=== PATIENT | female | born 1995 | race Caucasian/White ===

== ENCOUNTER 2019-04-08 12:43 | Inpatient (IN) | payer MEDICAID, OTHER ==
[~2019-04-08] VITALS: Ht 162.6 cm; Wt 94.0 kg
[~2019-04-08 12:43] MED LIST: BENZ2TAB10 PO; DIVA-78 PO; RISP2 PO
[2019-04-08] MEDS ORDERED: ARIP400S3 IM (14:02)
[2019-04-08] MEDS ORDERED: TOPI25 PO (14:02)
[2019-04-08] MEDS ORDERED: TRAZ-252 PO (14:02)
[2019-04-08] MEDS ORDERED: LISI-660 PO (14:02)
[2019-04-08 14:08] LABS: BASOPHILS % (AUTO) 0.5 % (0.0-2.0); EOSINOPHILS % (AUTO) 1.4 % (1.0-6.0); HEMATOCRIT 43.5 % (36-46); HEMOGLOBIN 14.5 g/dL (12.0-16.0); LYMPHOCYTES # (AUTO) 2.2 K/uL (1.0-4.8); LYMPHOCYTES % (AUTO) 15.1 % (22.0-44.0); MEAN CORPUSCULAR HEMOGLOBIN 28.5 pg (26.0-34.0); MEAN CORPUSCULAR HGB CONC 33.3 G/dL (31.0-37.0); MEAN CORPUSCULAR VOLUME 86 fL (80-100); MONOCYTES # (AUTO) 1.1 K/uL (0.1-1.0); MONOCYTES % (AUTO) 7.6 % (2.0-9.0); NEUTROPHILS # (AUTO) 10.8 K/uL (1.8-7.7); NEUTROPHILS % (AUTO) 75.4 % (40.0-70.0); PLATELET COUNT (AUTO) 410 K/uL (150-450); RED BLOOD CELL COUNT(AUTO) 5.07 MIL/uL (4.00-5.20); RED CELL DISTRIBUTION WIDTH 12.7 % (11.5-14.5)
[2019-04-08 14:20] LABS: ANION GAP 12 mmol/L (8-16); CARBON DIOXIDE 22 mmol/L (22-29); CHLORIDE 104 mmol/L (98-107); CREATININE 0.82 mg/dL (0.60-1.30); GLOMERULAR FILTR. RATE CALC > 60 mL/min (>60); GLUCOSE,RANDOM 93 mg/dL (70-110); SODIUM SERUM 138 mmol/L (136-145); UREA NITROGEN, BLOOD 16 mg/dL (7-18)
[2019-04-08 14:33] LABS: ALANINE AMINOTRANSFERASE 35 U/L (12-78); ALKALINE PHOSPHATASE 74 U/L (46-116); ASPARTATE AMINOTRANSFERASE 19 U/L (15-37); BILIRUBIN,TOTAL 0.4 mg/dL (0.1-1.0); HCG,QUANTITATIVE < 1 mIU/mL (0-6); TOTAL PROTEIN, SERUM 8.3 g/dL (6.4-8.2)
[2019-04-08] MEDS ORDERED: BACITRACIN 0.9 GM PACKET OINTMENT TP ONE (15:00)
[2019-04-08 15:15] LABS: APPEARANCE,URINE CLEAR (CLEAR); GLUCOSE, URINE (UA) NEGATIVE (NEGATIVE); KETONES,URINE TRACE mg/dL (NEGATIVE); LEUKOCYTE ESTERASE ,URINE SMALL (NEGATIVE); NITRATE,URINE NEGATIVE (NEGATIVE); OCCULT BLOOD,URINE NEGATIVE (NEGATIVE); PROTEIN,URINE TRACE (NEGATIVE)
[2019-04-08 15:16] LABS: BILIRUBIN,URINE PRELIM. POSITIVE (NEGATIVE)
[2019-04-08 15:24] LABS: AMPHET/METH SCREEN,URINE POSITIVE (NEGATIVE); BARBITURATE SCREEN, URINE NEGATIVE (NEGATIVE); BENZODIAZEPINES SCREEN,URINE NEGATIVE (NEGATIVE); CANNABINOID SCREEN,URINE POSITIVE (NEGATIVE); COCAINE SCREEN,URINE NEGATIVE (NEGATIVE); METHADONE SCREEN, URINE NEGATIVE (NEGATIVE); OPIATE SCREEN,URINE NEGATIVE (NEGATIVE)
[2019-04-08 15:26] LABS: BACTERIA,URINE Few /HPF (None Seen); PHENCYCLIDINE SCREEN,URINE NEGATIVE (NEGATIVE); RBC,URINE None Seen /HPF (0-2)
[2019-04-08 15:27] LABS: CALCIUM OXALATE CRYSTALS,UR Few /LPF (None Seen); SQUAMOUS EPITHELIAL CELL,UR Few /LPF (None Seen)
[2019-04-08] MEDS ORDERED: HALOPERIDOL LACTATE 5 MG/ML VIAL IM ONE (16:15)
[2019-04-08] MEDS ORDERED: DiphenhydrAMINE HCL 50 MG/ML VIAL IM ONE (16:15)
[2019-04-08] MEDS ORDERED: LORazepam 2 MG/ML VIAL IM ONE (16:15)
[2019-04-08 21:23] VITALS: BP 130/72
[2019-04-09] MEDS ORDERED: GuaiFENesin/D-METHORPHAN [SUGAR-FREE] 200-20MG/10 ML SYRUP UDCUP PO PRN (06:15)
[2019-04-09] MEDS ORDERED: ACETAMINOPHEN 325 MG TABLET PO PRN (06:15)
[2019-04-09] MEDS ORDERED: ALBUTEROL SULFATE HFA 90 MCG/PUFF 8 GM INHALER IH PRN (06:15)
[2019-04-09] MEDS ORDERED: MAG HYDROX/AL HYDROX/SIMETH ES 30 ML SUSPENSION UDCUP PO PRN (06:15)
[2019-04-09] MEDS ORDERED: ONDANSETRON HCL 4 MG TABLET PO PRN (06:15)
[2019-04-09] MEDS ORDERED: LOPERAMIDE HCL 2 MG CAPSULE PO PRN (06:15)
[2019-04-09] MEDS ORDERED: CloNIDine HCL 0.1 MG TABLET PO PRN (06:15)
[2019-04-09] MEDS ORDERED: PETROLATUM,WHITE 28 GM JELLY TP PRN (06:15)
[2019-04-09] MEDS ORDERED: DOCUSATE SODIUM 100 MG CAPSULE PO PRN (06:15)
[2019-04-09] MEDS ORDERED: MAGNESIUM HYDROXIDE SUSPENSION 30 ML UDCUP PO PRN (06:15)
[2019-04-09] MEDS: LISINOPRIL 5 MG TABLET PO SCH (08:11)
[2019-04-09 09:19] VITALS: BP 140/99
[2019-04-09] MEDS: LORazepam 2 MG TABLET PO PRN ×2 (11:34→16:51)
[2019-04-09] MEDS: DIVALPROEX SODIUM 500 MG DR TABLET PO SCH ×2 (12:31→20:40)
[2019-04-09 17:36] VITALS: BP 128/82
[2019-04-10] MEDS: ZOLPIDEM TARTRATE 10 MG TABLET PO PRN (00:13)
[2019-04-10] MEDS: LORazepam 2 MG TABLET PO PRN ×3 (00:13→11:40)
[2019-04-10] MEDS: LISINOPRIL 5 MG TABLET PO SCH (08:45)
[2019-04-10] MEDS: DIVALPROEX SODIUM 500 MG DR TABLET PO SCH ×2 (08:45→20:22)
[2019-04-10 08:57] VITALS: BP 136/94
[2019-04-10] MEDS: HALOPERIDOL 5 MG TABLET PO PRN (09:56)
[2019-04-10 16:56] VITALS: BP 120/83
[2019-04-11] MEDS: HALOPERIDOL 5 MG TABLET PO PRN ×2 (07:38→14:36)
[2019-04-11] MEDS: LORazepam 2 MG TABLET PO PRN ×2 (07:38→14:36)
[2019-04-11] MEDS: DIVALPROEX SODIUM 500 MG DR TABLET PO SCH ×2 (07:38→20:06)
[2019-04-11 08:15] VITALS: BP 130/96
[2019-04-11] MEDS: LISINOPRIL 5 MG TABLET PO SCH (09:05)
[2019-04-11 16:22] VITALS: BP 132/71
[2019-04-11] MEDS: BACITRACIN 28.4 GM OINTMENT TP SCH (17:52)
[2019-04-12 01:15] VITALS: BP 143/86
[2019-04-12] MEDS: LORazepam 2 MG TABLET PO PRN ×2 (01:15→15:37)
[2019-04-12] MEDS: LISINOPRIL 5 MG TABLET PO SCH (09:21)
[2019-04-12] MEDS: DIVALPROEX SODIUM 500 MG DR TABLET PO SCH ×2 (09:24→20:20)
[2019-04-12] MEDS: BACITRACIN 28.4 GM OINTMENT TP SCH ×2 (09:24→19:26)
[2019-04-12 09:48] VITALS: BP 149/91
[2019-04-12] MEDS: HALOPERIDOL 5 MG TABLET PO PRN (15:37)
[2019-04-12 16:00] VITALS: BP 109/76
[2019-04-12] MEDS: ZOLPIDEM TARTRATE 10 MG TABLET PO PRN (21:26)
[2019-04-13] MEDS: LORazepam 2 MG TABLET PO PRN ×2 (00:25→09:25)
[2019-04-13] MEDS: HALOPERIDOL 5 MG TABLET PO PRN ×2 (00:25→09:25)
[2019-04-13 08:00] VITALS: BP 132/80
[2019-04-13] MEDS: DIVALPROEX SODIUM 500 MG DR TABLET PO SCH ×2 (09:25→20:30)
[2019-04-13] MEDS: LISINOPRIL 5 MG TABLET PO SCH (09:25)
[2019-04-13] MEDS: BACITRACIN 28.4 GM OINTMENT TP SCH ×2 (09:38→16:31)
[2019-04-13 18:20] VITALS: BP 125/79
[2019-04-14] MEDS: LORazepam 2 MG TABLET PO PRN ×2 (03:27→14:29)
[2019-04-14 08:00] VITALS: BP 133/83
[2019-04-14] MEDS: LISINOPRIL 5 MG TABLET PO SCH (08:27)
[2019-04-14] MEDS: BACITRACIN 28.4 GM OINTMENT TP SCH ×3 (08:27→16:25)
[2019-04-14] MEDS: DIVALPROEX SODIUM 500 MG DR TABLET PO SCH ×2 (08:27→20:06)
[2019-04-14 16:23] VITALS: BP 124/74
[2019-04-14] MEDS: HALOPERIDOL 5 MG TABLET PO PRN (16:34)
[2019-04-14] MEDS: PETROLATUM,WHITE 28 GM JELLY TP SCH (20:06)
[2019-04-15] MEDS: LORazepam 2 MG TABLET PO PRN ×3 (01:56→18:27)
[2019-04-15] MEDS: ZOLPIDEM TARTRATE 10 MG TABLET PO PRN ×2 (01:56→23:45)
[2019-04-15 01:57] VITALS: BP 118/78
[2019-04-15 08:00] VITALS: BP 156/82
[2019-04-15] MEDS: HALOPERIDOL 5 MG TABLET PO PRN (08:24)
[2019-04-15] MEDS: LISINOPRIL 5 MG TABLET PO SCH (08:25)
[2019-04-15] MEDS: DIVALPROEX SODIUM 500 MG DR TABLET PO SCH ×2 (08:25→20:24)
[2019-04-15] MEDS: BACITRACIN 28.4 GM OINTMENT TP SCH ×3 (12:38→16:14)
[2019-04-15] MEDS: HYDROCORTISONE 1% 30 GM OINTMENT TP SCH (12:40)
[2019-04-15 16:54] VITALS: BP 129/83
[2019-04-15] MEDS: PETROLATUM,WHITE 28 GM JELLY TP SCH (20:23)
[2019-04-16] MEDS: LORazepam 2 MG TABLET PO PRN ×2 (02:11→10:30)
[2019-04-16] MEDS: HALOPERIDOL 5 MG TABLET PO PRN ×2 (02:11→10:30)
[2019-04-16 08:09] VITALS: BP 135/96
[2019-04-16] MEDS: DIVALPROEX SODIUM 500 MG DR TABLET PO SCH ×2 (08:23→20:44)
[2019-04-16] MEDS: BACITRACIN 28.4 GM OINTMENT TP SCH ×3 (08:23→16:39)
[2019-04-16] MEDS: LISINOPRIL 5 MG TABLET PO SCH (08:23)
[2019-04-16] MEDS: HYDROCORTISONE 1% 30 GM OINTMENT TP SCH (09:17)
[2019-04-16] MEDS: SULFAMETHOX/TRIMETH DS 800-160 MG/TABLET PO SCH (16:39)
[2019-04-16 17:53] VITALS: BP 109/86
[2019-04-16] MEDS: PETROLATUM,WHITE 28 GM JELLY TP SCH (20:45)
[2019-04-17] MEDS: LORazepam 2 MG TABLET PO PRN ×3 (03:24→20:56)
[2019-04-17 07:34] LABS: BASOPHILS % (AUTO) 0.7 % (0.0-2.0); EOSINOPHILS % (AUTO) 2.2 % (1.0-6.0); HEMATOCRIT 42.9 % (36-46); HEMOGLOBIN 14.4 g/dL (12.0-16.0); LYMPHOCYTES # (AUTO) 2.6 K/uL (1.0-4.8); LYMPHOCYTES % (AUTO) 20.8 % (22.0-44.0); MEAN CORPUSCULAR HEMOGLOBIN 28.8 pg (26.0-34.0); MEAN CORPUSCULAR HGB CONC 33.5 G/dL (31.0-37.0); MEAN CORPUSCULAR VOLUME 86 fL (80-100); MONOCYTES # (AUTO) 0.6 K/uL (0.1-1.0); MONOCYTES % (AUTO) 4.5 % (2.0-9.0); NEUTROPHILS # (AUTO) 8.9 K/uL (1.8-7.7); NEUTROPHILS % (AUTO) 71.8 % (40.0-70.0); PLATELET COUNT (AUTO) 306 K/uL (150-450); RED BLOOD CELL COUNT(AUTO) 4.99 MIL/uL (4.00-5.20); RED CELL DISTRIBUTION WIDTH 12.5 % (11.5-14.5)
[2019-04-17] MEDS ORDERED: ARIPiprazole 10 MG TABLET PO SCH (09:00)
[2019-04-17] MEDS: SULFAMETHOX/TRIMETH DS 800-160 MG/TABLET PO SCH ×2 (09:23→16:17)
[2019-04-17] MEDS: LISINOPRIL 5 MG TABLET PO SCH (09:24)
[2019-04-17] MEDS: DIVALPROEX SODIUM 500 MG DR TABLET PO SCH ×2 (09:24→20:55)
[2019-04-17] MEDS: BACITRACIN 28.4 GM OINTMENT TP SCH ×2 (09:28→10:00)
[2019-04-17 10:18] VITALS: BP 133/81
[2019-04-17 16:48] VITALS: BP 102/57
[2019-04-17] MEDS: HALOPERIDOL 5 MG TABLET PO PRN (20:55)
[2019-04-17] MEDS: PETROLATUM,WHITE 28 GM JELLY TP SCH (20:58)
[2019-04-17] MEDS: ZOLPIDEM TARTRATE 10 MG TABLET PO PRN (21:30)
[2019-04-18 00:40] VITALS: BP 112/78
[2019-04-18] MEDS: IBUPROFEN 400 MG TABLET PO PRN ×3 (00:44→16:59)
[2019-04-18] MEDS: HALOPERIDOL 5 MG TABLET PO PRN (07:57)
[2019-04-18 08:00] VITALS: BP 102/69
[2019-04-18] MEDS: DIVALPROEX SODIUM 500 MG DR TABLET PO SCH ×2 (08:12→20:20)
[2019-04-18] MEDS: LISINOPRIL 5 MG TABLET PO SCH (08:12)
[2019-04-18] MEDS: ARIPiprazole 10 MG TABLET PO SCH (08:12)
[2019-04-18] MEDS: SULFAMETHOX/TRIMETH DS 800-160 MG/TABLET PO SCH ×2 (08:12→16:16)
[2019-04-18] MEDS: LORazepam 2 MG TABLET PO PRN (11:31)
[2019-04-18] MEDS: BACITRACIN 28.4 GM OINTMENT TP SCH (13:56)
[2019-04-18 16:59] VITALS: BP 111/60
[2019-04-18] MEDS: ZOLPIDEM TARTRATE 10 MG TABLET PO PRN (20:20)
[2019-04-18] MEDS: PETROLATUM,WHITE 28 GM JELLY TP SCH (20:21)
[2019-04-19] MEDS: LORazepam 2 MG TABLET PO PRN ×3 (01:27→15:35)
[2019-04-19 01:28] VITALS: BP 102/73
[2019-04-19] MEDS: HALOPERIDOL 5 MG TABLET PO PRN ×2 (07:40→15:35)
[2019-04-19] MEDS: ARIPiprazole 10 MG TABLET PO SCH (08:03)
[2019-04-19] MEDS: DIVALPROEX SODIUM 500 MG DR TABLET PO SCH ×2 (08:04→20:29)
[2019-04-19] MEDS: SULFAMETHOX/TRIMETH DS 800-160 MG/TABLET PO SCH ×2 (08:04→17:52)
[2019-04-19] MEDS: LISINOPRIL 5 MG TABLET PO SCH (08:04)
[2019-04-19 09:41] VITALS: BP 132/80
[2019-04-19] MEDS: BACITRACIN 28.4 GM OINTMENT TP SCH (14:05)
[2019-04-19] MEDS: IBUPROFEN 400 MG TABLET PO PRN (17:55)
[2019-04-19 17:56] VITALS: BP 129/78
[2019-04-19] MEDS: PETROLATUM,WHITE 28 GM JELLY TP SCH (20:30)
[2019-04-19] MEDS: ZOLPIDEM TARTRATE 10 MG TABLET PO PRN (22:01)
[2019-04-20] MEDS: SULFAMETHOX/TRIMETH DS 800-160 MG/TABLET PO SCH ×2 (08:07→16:28)
[2019-04-20] MEDS: DIVALPROEX SODIUM 500 MG DR TABLET PO SCH ×2 (08:07→20:16)
[2019-04-20] MEDS: ARIPiprazole 10 MG TABLET PO SCH (08:07)
[2019-04-20] MEDS: LISINOPRIL 5 MG TABLET PO SCH (08:08)
[2019-04-20 09:34] VITALS: BP 134/88
[2019-04-20] MEDS: NICOTINE 14 MG/24 HOUR PATCH TD PRN (13:06)
[2019-04-20] MEDS: HALOPERIDOL 5 MG TABLET PO PRN (13:06)
[2019-04-20] MEDS: LORazepam 2 MG TABLET PO PRN (13:06)
[2019-04-20] MEDS: BACITRACIN 28.4 GM OINTMENT TP SCH (13:43)
[2019-04-20 17:06] VITALS: BP 128/82
[2019-04-20] MEDS: PETROLATUM,WHITE 28 GM JELLY TP SCH (20:16)
[2019-04-21] MEDS: ZOLPIDEM TARTRATE 10 MG TABLET PO PRN ×2 (02:27→20:26)
[2019-04-21] MEDS: LORazepam 2 MG TABLET PO PRN ×2 (02:27→09:29)
[2019-04-21] MEDS: LISINOPRIL 5 MG TABLET PO SCH (09:27)
[2019-04-21] MEDS: SULFAMETHOX/TRIMETH DS 800-160 MG/TABLET PO SCH ×2 (09:27→16:25)
[2019-04-21] MEDS: DIVALPROEX SODIUM 500 MG DR TABLET PO SCH ×2 (09:27→20:25)
[2019-04-21] MEDS: BACITRACIN 28.4 GM OINTMENT TP SCH (09:27)
[2019-04-21] MEDS: ARIPiprazole 10 MG TABLET PO SCH (09:27)
[2019-04-21] MEDS: HALOPERIDOL 5 MG TABLET PO PRN ×2 (09:28→18:07)
[2019-04-21 09:53] VITALS: BP 127/73
[2019-04-21 16:28] VITALS: BP 128/90
[2019-04-21] MEDS: PETROLATUM,WHITE 28 GM JELLY TP SCH (20:25)
[2019-04-22] MEDS: LORazepam 2 MG TABLET PO PRN ×3 (00:39→15:53)
[2019-04-22 00:41] VITALS: BP 150/65
[2019-04-22 08:00] VITALS: BP 146/87
[2019-04-22] MEDS: ARIPiprazole 10 MG TABLET PO SCH (08:12)
[2019-04-22] MEDS: SULFAMETHOX/TRIMETH DS 800-160 MG/TABLET PO SCH ×2 (08:12→15:53)
[2019-04-22] MEDS: DIVALPROEX SODIUM 500 MG DR TABLET PO SCH ×2 (08:12→20:06)
[2019-04-22] MEDS: LISINOPRIL 5 MG TABLET PO SCH (08:12)
[2019-04-22] MEDS: HALOPERIDOL 5 MG TABLET PO PRN ×2 (08:40→15:53)
[2019-04-22] MEDS: BACITRACIN 28.4 GM OINTMENT TP SCH (12:35)
[2019-04-22 16:53] VITALS: BP 132/89
[2019-04-22] MEDS: IBUPROFEN 400 MG TABLET PO PRN (18:52)
[2019-04-22 18:53] VITALS: BP 129/78
[2019-04-22] MEDS: PETROLATUM,WHITE 28 GM JELLY TP SCH (20:06)
[2019-04-22] MEDS: ZOLPIDEM TARTRATE 10 MG TABLET PO PRN (23:11)
[2019-04-23 05:30] VITALS: BP 106/76
[2019-04-23] MEDS: SULFAMETHOX/TRIMETH DS 800-160 MG/TABLET PO SCH ×2 (07:52→16:31)
[2019-04-23] MEDS: HALOPERIDOL 5 MG TABLET PO PRN (07:52)
[2019-04-23] MEDS: LORazepam 2 MG TABLET PO PRN ×2 (07:52→23:50)
[2019-04-23] MEDS: ARIPiprazole 10 MG TABLET PO SCH (07:53)
[2019-04-23] MEDS: DIVALPROEX SODIUM 500 MG DR TABLET PO SCH ×2 (07:53→20:12)
[2019-04-23] MEDS: LISINOPRIL 5 MG TABLET PO SCH (07:53)
[2019-04-23 09:45] VITALS: BP 128/69
[2019-04-23] MEDS: BACITRACIN 28.4 GM OINTMENT TP SCH (11:09)
[2019-04-23] MEDS: PETROLATUM,WHITE 28 GM JELLY TP SCH (20:13)
[2019-04-23] MEDS: ZOLPIDEM TARTRATE 10 MG TABLET PO PRN (20:47)
[2019-04-24 00:15] VITALS: BP 119/71
[2019-04-24] MEDS: LORazepam 2 MG TABLET PO PRN (04:29)
[2019-04-24] MEDS: DIVALPROEX SODIUM 500 MG DR TABLET PO SCH ×2 (08:29→20:25)
[2019-04-24] MEDS: ARIPiprazole 10 MG TABLET PO SCH (08:29)
[2019-04-24] MEDS: SULFAMETHOX/TRIMETH DS 800-160 MG/TABLET PO SCH ×2 (08:29→16:20)
[2019-04-24] MEDS: LISINOPRIL 5 MG TABLET PO SCH (08:29)
[2019-04-24 08:30] VITALS: BP 107/74
[2019-04-24] MEDS: NICOTINE 14 MG/24 HOUR PATCH TD PRN (10:18)
[2019-04-24] MEDS: BACITRACIN 28.4 GM OINTMENT TP SCH (10:19)
[2019-04-24 16:08] VITALS: BP 137/75
[2019-04-24] MEDS: HALOPERIDOL 5 MG TABLET PO PRN (19:23)
[2019-04-24] MEDS: ZOLPIDEM TARTRATE 10 MG TABLET PO PRN (20:25)
[2019-04-24] MEDS: PETROLATUM,WHITE 28 GM JELLY TP SCH (20:26)
[2019-04-25 01:55] VITALS: BP 109/67
[2019-04-25] MEDS: HALOPERIDOL 5 MG TABLET PO PRN ×2 (01:58→16:02)
[2019-04-25 08:43] VITALS: BP 144/71
[2019-04-25] MEDS: SULFAMETHOX/TRIMETH DS 800-160 MG/TABLET PO SCH ×2 (09:35→16:04)
[2019-04-25] MEDS: LISINOPRIL 5 MG TABLET PO SCH (09:35)
[2019-04-25] MEDS: DIVALPROEX SODIUM 500 MG DR TABLET PO SCH ×2 (09:36→20:17)
[2019-04-25] MEDS: ARIPiprazole 10 MG TABLET PO SCH (09:36)
[2019-04-25] MEDS: ZOLPIDEM TARTRATE 10 MG TABLET PO PRN (20:17)
[2019-04-25] MEDS: PETROLATUM,WHITE 28 GM JELLY TP SCH (20:19)
[2019-04-25 20:58] VITALS: BP 116/68
[2019-04-26] MEDS: HALOPERIDOL 5 MG TABLET PO PRN ×3 (01:31→17:10)
[2019-04-26 01:32] VITALS: BP 117/63
[2019-04-26] MEDS: ARIPiprazole 10 MG TABLET PO SCH (07:58)
[2019-04-26] MEDS: LISINOPRIL 5 MG TABLET PO SCH (07:58)
[2019-04-26] MEDS: DIVALPROEX SODIUM 500 MG DR TABLET PO SCH ×2 (07:58→20:39)
[2019-04-26] MEDS: SULFAMETHOX/TRIMETH DS 800-160 MG/TABLET PO SCH (07:59)
[2019-04-26 08:00] VITALS: BP 118/70
[2019-04-26] MEDS: LORazepam 2 MG TABLET PO PRN ×3 (11:26→23:35)
[2019-04-26 16:18] VITALS: BP 123/76
[2019-04-26] MEDS: PETROLATUM,WHITE 28 GM JELLY TP SCH (20:39)
[2019-04-26] MEDS: ZOLPIDEM TARTRATE 10 MG TABLET PO PRN (23:35)
[2019-04-27] MEDS: LISINOPRIL 5 MG TABLET PO SCH (08:16)
[2019-04-27] MEDS: ARIPiprazole 10 MG TABLET PO SCH (08:16)
[2019-04-27] MEDS: DIVALPROEX SODIUM 500 MG DR TABLET PO SCH (08:16)
[2019-04-27 08:18] VITALS: BP 122/84
[2019-04-27] MEDS ORDERED: DIVA-78 PO (08:51)
[2019-04-27] MEDS ORDERED: ARIP400S3 IM (08:51)
[2019-04-27] MEDS: LORazepam 2 MG TABLET PO PRN (11:17)
[2019-05-05] MEDS ORDERED: ARIPiprazole ER SUSPENSION 400 MG PRE-FILLED DUAL CHAMBER SYRINGE IM SCH (09:00)
== END 2019-04-27 14:30 | disposition home or self-care (01) | DRG 750 ==
LOC: EMS 12:46 → 3EC 20:00
DX: F25.0 Schizoaffective disorder, bipolar type (principal); B95.62 Methicillin resistant Staphylococcus aureus infection as the cause of diseases classified elsewhere; F10.10 Alcohol abuse, uncomplicated; F12.10 Cannabis abuse, uncomplicated; F15.10 Other stimulant abuse, uncomplicated; I10 Essential (primary) hypertension; L25.9 Unspecified contact dermatitis, unspecified cause; F32.9 Major depressive disorder, single episode, unspecified; F41.9 Anxiety disorder, unspecified; Z79.899 Other long term (current) drug therapy; Z71.51 Drug abuse counseling and surveillance of drug abuser; Z71.41 Alcohol abuse counseling and surveillance of alcoholic
CPT/HCPCS: 87070; 87081; 87086; 87205; 96372; G0480; J1200; J1630; J2060